=== PATIENT | female | born 1990 | race Caucasian/White ===

== ENCOUNTER 2016-08-14 05:16 | Day surgery (SDC) | payer OTHER ==
[~2016-08-14] VITALS: Ht 160 cm; Wt 47.6 kg
--- NOTE | ~2016-08-14 | O ---
[facility] [place] [address] OPERATIVE REPORT Name: JOSR,CHIQUITA EDIN Room #: DEP [facility] M.R.#: [id number] Admission: 08/14/16 Attend Phys: Valerio Temple MD Discharge: 08/14/16 Date of : 89 Report #: [id number] THIS REPORT FOR: //name// CC: Valerio Temple Roberta Bocanegra DATE OF SERVICE: 08/14/2016 PREOPERATIVE DIAGNOSIS: Right foot medial sesamoid fracture nonunion. POSTOPERATIVE DIAGNOSIS: Right foot medial sesamoid fracture nonunion. PROCEDURE: Right foot medial sesamoid excision. SURGEON: Valerio Temple MD. ANESTHESIA: General. ESTIMATED BLOOD LOSS: Minimal. DRAINS: None. TOURNIQUET TIME: 25 minutes. DESCRIPTION OF PROCEDURE: The patient brought to the operating room where she was placed under general anesthesia. Once under adequate general anesthesia, her right lower extremity was prepped and draped in sterile manner. The extremity was elevated, exsanguinated, tourniquet placed to 300 mmHg. A medial incision approximately 3 cm in length was made over the metatarsophalangeal joint of the great toe. This was dissected down to the joint capsule, which was incised exposing the joint and the medial sesamoid. There was some inflammatory fluid, which did come from the joint upon entering it. The sesamoid was identified and a Hand blade was utilized to remove the surrounding tissue from the medial sesamoid. Once completely free of the soft tissue, a rongeur was utilized to remove the 2 bony fragments. The wound was then irrigated once again copiously and 3-0 Ethibond suture was utilized to repair the rent in the flexor hallucis brevis tendon. Once this was complete, the wound was irrigated once again copiously and the medial capsular layer was closed with 3-0 Ethibond suture, 2-0 Vicryl was used in subcutaneous tissues and jessica were used for the skin. The wounds were dressed with Xeroform, 4 x 4s, and sterile soft compressive dressing was placed. Tourniquet was let down at 25 minutes. Toes were pink and warm with good capillary refill. There were no complications from [facility] [address] [place] [address] OPERATIVE REPORT Name: CHIQUITA OVALLES EDIN Room #: DEP [facility].#: [id number] Admission: 08/14/16 Attend Phys: Valerio Temple MD Discharge: 08/14/16 Date of : 89 Report #: [id number] the procedure. The patient tolerated the procedure well and went to the recovery room without incident. <ELECTRONICALLY SIGNED> By: Valerio Temple MD 08/15/16 0742 [id number] [id number] Valerio Temple MD /nt
[2016-08-14 11:00] VITALS: BP 99/63
[2016-08-14] MEDS ORDERED: PERCOCET PO (12:22)
[2016-08-14 13:02] VITALS: BP 99/63
== END 2016-08-14 13:50 | disposition home or self-care (01) ==
LOC: OR 05:16 → TBA 05:16 → OR 10:07
DX: S92.811K Other fracture of right foot, subsequent encounter for fracture with nonunion (principal); X58.XXXD Exposure to other specified factors, subsequent encounter
CPT/HCPCS: 50010; 50101; 50386; 56524; 56525; 56527; 57091; 62110; 62900; 70005